=== PATIENT | female | born 1985 | race Caucasian/White ===

== ENCOUNTER → 2017-04-10 18:44 | Outpatient (CLI) | payer OTHER, SELFPAY ==
[2017-04-10 19:28] VITALS: BMI 37.4
--- NOTE | 2017-04-10 19:36 | PC.NURSE ---
INJECTIONS GIVEN PER Darin COLES RN.
== END ==
PROVIDERS: PCP Emergency Medicine; Visit Provider Emergency Medicine
DX: M54.30 Sciatica, unspecified side (principal)
CPT/HCPCS: 96372

== ENCOUNTER → 2017-04-28 16:49 | Outpatient (CLI) | payer OTHER, SELFPAY ==
[2017-04-28 19:18] VITALS: BMI 374377.5
== END ==
PROVIDERS: PCP Emergency Medicine; Visit Provider Emergency Medicine
DX: M54.30 Sciatica, unspecified side (principal)
CPT/HCPCS: 96372

== ENCOUNTER → 2017-07-07 12:55 | Outpatient (CLI) | payer OTHER, SELFPAY ==
--- NOTE | 2017-07-07 13:05 | MR_ITS ---
MR head/brain wo con HISTORY: Headache with difficulty speaking and visual disturbance ITS.REASON: MIGRAINES, ocular migraines ORDERING PHYSICIAN: Amador De Paz MD PATIENT AGE: 31 years COMPARISON: 04/24/2011 TECHNIQUE: Standard multiplanar multiecho sequences are performed without contrast. FINDINGS: No midline shift, mass effect, intracranial hemorrhage, hydrocephalus, or acute infarction. There is normal davalos-white matter differentiation. No abnormal white matter signal intensity. Unremarkable hippocampal gyri and symmetric temporal horns. The pituitary, optic chiasm, corpus callosum have an unremarkable appearance. No cerebellar ectopia. No mastoid effusion or sinus air-fluid level. IMPRESSION: Negative MRI of the brain without contrast
== END ==
PROVIDERS: PCP Internal Medicine Adolescent Medicine; Visit Provider Internal Medicine Adolescent Medicine
DX: G43.909 Migraine, unspecified, not intractable, without status migrainosus (principal)
CPT/HCPCS: 70551

== ENCOUNTER → 2017-08-07 20:06 | Outpatient (CLI) | payer OTHER, SELFPAY ==
--- NOTE | 2017-08-07 20:16 | XR_ITS ---
XR chest 2V HISTORY: ITS.REASON: SHORTNESS OF BREATH ORDERING PHYSICIAN: Keesha Hicks PATIENT AGE: 31 years COMPARISON: 05/14/2012 FINDINGS: The cardiomediastinal silhouette and pulmonary vascularity are within normal limits. The lungs are clear without infiltrates, suspicious nodules, or pleural effusions. No acute bony abnormalities. IMPRESSION: Negative chest, no acute finding
== END ==
PROVIDERS: PCP Nurse Practitioner Family; Visit Provider Nurse Practitioner Family
DX: R06.02 Shortness of breath (principal)
CPT/HCPCS: 71046

== ENCOUNTER → 2017-08-13 11:05 | Outpatient (CLI) | payer OTHER, SELFPAY | PROVIDERS: PCP Nurse Practitioner Family; Visit Provider Nurse Practitioner Family | DX: R06.02 Shortness of breath (principal) | CPT/HCPCS: 93306 ==

== ENCOUNTER → 2018-01-16 15:00 | Outpatient (CLI) | payer OTHER, SELFPAY | PROVIDERS: PCP Internal Medicine Adolescent Medicine; Visit Provider Internal Medicine Adolescent Medicine | DX: J02.9 Acute pharyngitis, unspecified (principal) | CPT/HCPCS: 87070; 87077; 87186 ==

== ENCOUNTER → 2018-03-05 08:17 | Outpatient (POV) | payer OTHER, SELFPAY | PROVIDERS: Visit Provider Dentist | DX: Z00.00 Encounter for general adult medical examination without abnormal findings (principal) ==

== ENCOUNTER 2018-04-21 15:31 | Outpatient (CLI) | payer OTHER, SELFPAY ==
[2018-04-21 15:53] VITALS: BMI 39.9
== END 2018-04-21 16:05 | disposition home or self-care (01) ==
LOC: INF 15:33
PROVIDERS: PCP Internal Medicine Adolescent Medicine; Visit Provider Emergency Medicine
DX: R09.81 Nasal congestion (principal)
CPT/HCPCS: 96372

== ENCOUNTER 2018-05-05 14:01 | Outpatient (CLI) | payer OTHER, SELFPAY ==
[2018-05-05 14:06] VITALS: BMI 41.5
== END 2018-05-05 14:12 | disposition home or self-care (01) ==
LOC: INF 14:03
PROVIDERS: PCP Internal Medicine Adolescent Medicine; Visit Provider Emergency Medicine
DX: J01.90 Acute sinusitis, unspecified (principal)
CPT/HCPCS: 96372

== ENCOUNTER → 2018-11-19 14:36 | Outpatient (CLI) | payer OTHER, SELFPAY ==
--- NOTE | 2018-11-19 14:41 | CT_ITS ---
PROCEDURE: CT ABDOMEN PELVIS WO CON CLINICAL HISTORY: UMBILICAL FISTULA, PERIUMBILICAL PAIN Mid abdominal pain COMPARISON: ABDPELW/O CT ABD PELVIS W/O CONTRAST from 07/02/2014 TECHNIQUE: Axial images obtained with sagittal and coronal reformats. All CT scans at the facility use one or more dose reduction, viz: automated exposure control, ma/kV adjustment per patient size (including targeted exams where dose is matched to indication, i.e. head), or iterative reconstruction technique. FINDINGS: Lung bases are clear. Post cholecystectomy change. No focal liver lesion. The spleen, adrenal glands, and pancreas are unremarkable. No renal or ureteral calculi are evident. No hydronephrosis. No intestinal obstruction or free air. Unremarkable appendix. There is diverticulosis of the descending and sigmoid colon but no evidence of diverticulitis. Cystic lesion is present in the left adnexa measuring 5.6 cm consistent with ovarian cyst. There is some questionable thickening of the cyst wall posteriorly. Pelvic ultrasound may provide further evaluation. No cul-de-sac fluid. No pelvic adenopathy the abdominal wall has an unremarkable appearance. There are degenerative changes at L5-S1.. Bone island is present in the proximal femur on the right IMPRESSION: 5.6 cm left ovarian cyst. Consider pelvic ultrasound for further evaluation. Colonic diverticulosis. No evidence of diverticulitis. Otherwise negative Dictated by: Cristobal Salinas MD 11/20/2018 08:12 Signed by: <Electronically signed by Cristobal Salinas MD in [place]> 11/20/2018 08:12
[2018-11-19 17:09] LABS: Alanine Aminotransferase 20 U/L (12-78); Albumin Level 3.5 gm/dL (3.4-5.0); Albumin/Globulin Ratio 0.8 (1.1-1.8); Alkaline Phosphatase 78 U/L (46-116); Amylase 30 U/L (25-115); Anion Gap 10.4 mEq/L (5-15); Aspartate Amino Transferase 14 U/L (15-37); Bilirubin,Total 0.5 mg/dL (0.2-1.0); Blood Urea Nitrogen 9 mg/dL (7-18); Calcium 8.9 mg/dL (8.5-10.1); Carbon Dioxide 27 mmol/L (21.0-32.0); Chloride 103 mmol/L (98-107); Creatinine,Serum 0.74 mg/dL (0.55-1.02); Estimated Glomerular Filt Rate 89 ml/min (>60); GFR (African American) 108 ML/MIN (>60); Globulin 4.3 gm/dl (1.3-3.2); Glucose 101 mg/dL (74-106); Lipase 117 u/L (73-393); Potassium 3.4 mmoL/L (3.5-5.1); Sodium 137 mmol/L (136-145); Total Protein,Serum 7.8 gm/dL (6.4-8.2)
[2018-11-19 17:35] LABS: Basophils % 0.5 % (0.1-2.0); Eosinophils # 0.1 K/mm3 (0.0-0.4); Eosinophils % 0.8 % (0.1-12.0); Hemoglobin 13.6 g/dL (12.2-16.2); Lymphocytes # 2.6 K/mm3 (0.7-4.5); Lymphocytes % 31.7 % (10-50); Mean Corpuscular HGB Conc 33.1 g/dL (31.8-35.4); Mean Corpuscular Hemoglobin 28.6 pg (27.0-31.2); Mean Corpuscular Volume 86.6 fl (81-99); Mean Platelet Volume 6.6 fl (7.4-10.4); Monocytes # 0.4 K/mm3 (0.1-1.0); Monocytes % 4.3 % (1.7-9.3); Neutrophils # 5.2 K/mm3 (1.8-7.8); Neutrophils % 62.7 % (37.0-80.0); Platelet Count 363 K/mm3 (142-424); Red Blood Count 4.74 M/mm3 (4.20-5.40); Red Cell Distribution Width 13.5 % (11.5-17.5); White Blood Count 8.3 K/mm3 (4.8-10.8)
== END ==
PROVIDERS: PCP Internal Medicine Adolescent Medicine; Visit Provider Internal Medicine Adolescent Medicine
DX: Q89.8 Other specified congenital malformations (principal); R10.33 Periumbilical pain
CPT/HCPCS: 36415; 74176; 80053; 82150; 83690; 85025

== ENCOUNTER → 2019-04-06 07:36 | Outpatient (CLI) | payer OTHER, SELFPAY ==
[2019-04-06 07:50] VITALS: BMI 48.6
== END ==
PROVIDERS: PCP Internal Medicine Adolescent Medicine; Visit Provider Emergency Medicine
DX: J03.90 Acute tonsillitis, unspecified (principal); J40 Bronchitis, not specified as acute or chronic
CPT/HCPCS: 96372

== ENCOUNTER → 2019-11-08 08:30 | Outpatient (CLI) | payer OTHER, SELFPAY ==
[2019-11-08 10:04] LABS: Coronavirus 19 IgG Antibody Negative (Negative); Coronavirus 19 IgM Antibody Negative (Negative)
== END ==
PROVIDERS: PCP Internal Medicine Adolescent Medicine; Visit Provider Internal Medicine Adolescent Medicine
DX: Z03.818 Encounter for observation for suspected exposure to other biological agents ruled out (principal)
CPT/HCPCS: 36415; 86328; U0003

== ENCOUNTER → 2019-12-14 10:53 | Outpatient (CLI) | payer OTHER, SELFPAY ==
[2019-12-14 12:27] LABS: 25-OH Vitamin D, Total 51.1 ng/mL (30-100)
[2019-12-14 13:03] LABS: Vitamin B12 290 pg/mL (239-931)
== END ==
PROVIDERS: Visit Provider Nurse Practitioner Family
DX: E53.8 Deficiency of other specified B group vitamins (principal); R20.2 Paresthesia of skin
CPT/HCPCS: 36415; 82306; 82607

== ENCOUNTER → 2020-03-10 10:46 | Outpatient (CLI) | payer OTHER, SELFPAY ==
[2020-03-10 11:18] LABS: Basophils % 0.6 % (0.1-2.0); Eosinophils # 0.1 K/mm3 (0.0-0.4); Eosinophils % 1.2 % (0.1-12.0); Hematocrit 45.4 % (37.0-47.0); Hemoglobin 15.5 g/dL (12.2-16.2); Lymphocytes # 2.2 K/mm3 (0.7-4.5); Lymphocytes % 32.7 % (10-50); Mean Corpuscular HGB Conc 34.2 g/dL (31.8-35.4); Mean Corpuscular Hemoglobin 30.9 pg (27.0-31.2); Mean Corpuscular Volume 90.3 fl (81-99); Mean Platelet Volume 7.4 fl (7.4-10.4); Monocytes # 0.3 K/mm3 (0.1-1.0); Monocytes % 4.1 % (1.7-9.3); Neutrophils # 4.1 K/mm3 (1.8-7.8); Neutrophils % 61.3 % (37.0-80.0); Platelet Count 318 K/mm3 (142-424); Red Blood Count 5.02 M/mm3 (4.20-5.40); Red Cell Distribution Width 13.2 % (11.5-17.5); White Blood Count 6.6 K/mm3 (4.8-10.8)
[2020-03-10 11:43] LABS: Alanine Aminotransferase 15 U/L (12-78); Albumin Level 4.9 g/dl (3.5-5.0); Albumin/Globulin Ratio 1.4 (1.1-1.8); Alkaline Phosphatase 93 U/L (38-126); Anion Gap 12.2 mEq/L (5-15); Aspartate Amino Transferase 22 U/L (14-36); Bilirubin,Total 0.7 mg/dl (0.2-1.3); Blood Urea Nitrogen 14 mg/dl (7-17); Carbon Dioxide 25 mmol/L (22.0-30.0); Chloride 105 mmol/L (98-107); Estimated Glomerular Filt Rate 113 ml/min (>60); GFR (African American) 137 ML/MIN (>60); Globulin 3.5 g/dL (1.3-3.2); Glucose 100 mg/dl (74-100); Potassium 4.2 mmoL/L (3.5-5.1); Sodium 138 mmol/L (136-145); Total Protein,Serum 8.4 g/dl (6.3-8.2)
[2020-03-10 11:53] LABS: Erythrocyte Sedimentation Rate 10 mm/hr (0-20)
[2020-03-10 12:33] LABS: Vitamin B12 834 pg/mL (239-931)
[2020-03-14 20:10] LABS: Antinuclear Antibodies, IFA Negative (.)
== END ==
PROVIDERS: Visit Provider Nurse Practitioner Family
DX: G43.109 Migraine with aura, not intractable, without status migrainosus (principal); E53.8 Deficiency of other specified B group vitamins; H20.9 Unspecified iridocyclitis
CPT/HCPCS: 36415; 80053; 82607; 85025; 85651; 86038; 86140

== ENCOUNTER → 2020-03-14 09:24 | Outpatient (CLI) | payer OTHER, SELFPAY ==
--- NOTE | 2020-03-14 09:35 | CA_ITS ---
APPROVED REPORT EXAM: Comprehensive 2D, Doppler, and color-flow Echocardiogram Brand Protection Manager: Florence George, RT(R) Ht: 5 ft 5 in Wt: 236lbs BSA: 2.12 BP: 112/54 mmHg Indications: occular migraine, HTN, family history of HD, ordered as a bubble study Echo Enhancing Agent Indication: Rule out Shunt Agent(s) / Amount(s) Used: Agitated Saline 20 cc 2D Dimensions LVOT 2.05 cm (M/F) 1.5-2.5 M-Mode Dimensions RVDd 2.88 cm (0.9-2.6) LA Diam 2.55 cm (1.9-4.0) LVDd 4.25 cm (3.5-5.7) Ao Diam 3.70 cm (2.0-3.7) LVDs 2.96 cm (3.5-5.7) IVSd 1.06 cm (0.6-1.1) PWd 1.02 cm (0.6-1.1) EF (Teich) 58.00% FS 30.40% EDV (Teich) 80.80 mL ESV (Teich) 33.90 mL LV Diastology E Decel Time 247.00 (160-240 msec) E/A Ratio 1.1 MED E' 6.40 (< 7 cm/sec) E'/MED E' Ratio 12.34 (>14) LAT E' 14.20 (<10 cm/sec) E/LAT E' Ratio 5.56 (>14) Mitral Valve MV E Max Efrain. 79.00 (40-130 cm/s) MV A Velocity 69.00 (40-130 cm/s) E/A Ratio 1.15 MV Decel. Time 247.00 (160-240 ms) MV PHT 72.00 ms Tricuspid Valve TR P. Velocity 165.00 cm/s RAP Estimate 15.00 mmHg RVSP 25.90 mmHg Left Ventricle Left atrium is normal size, left ventricle is normal size, there is no concentric left ventricular hypertrophy, visually estimated ejection fraction 55% with no regional wall motion abnormality. Diastolic parameters are inconclusive. Right Ventricle Right atrium and right ventricular normal size and contractility. Atria Intra-atrial septum is intact, there is no flow across the interatrial septum, agitated saline contrast study fails 25 intracardiac shunt. Aortic Valve Aortic valve is minimally thickened and fibrosed, there is no aortic stenosis or aortic insufficiency. Mitral Valve Mitral valve is grossly normal, there is trace mitral regurgitation. Tricuspid Valve Tricuspid valve is grossly normal, there is trace tricuspid regurgitation. Pulmonic Valve Pulmonic valve is poorly visualized. Great Vessels Aortic root is normal size. Pericardium No significant pericardial effusion noted. Conclusion 1. Normal left ventricular size, preserved left ventricular systolic function, visually estimated ejection fraction 55% with no regional wall motion abnormality, diastolic parameters are inconclusive. 2. Trace mitral and tricuspid regurgitation. 3. Agitated saline contrast study fails to identify intracardiac shunt. Electronically signed by : Antonino Thomas, 03/15/2020 05:57:47
== END ==
PROVIDERS: PCP Internal Medicine Adolescent Medicine; Visit Provider Nurse Practitioner Family
DX: G43.109 Migraine with aura, not intractable, without status migrainosus (principal)
CPT/HCPCS: 93306

== ENCOUNTER → 2020-12-06 13:37 | Outpatient (CLI) | payer OTHER, SELFPAY | PROVIDERS: PCP Internal Medicine Adolescent Medicine; Visit Provider Nurse Practitioner | DX: Z20.822 Contact with and (suspected) exposure to COVID-19 (principal) | CPT/HCPCS: C9803; U0003; U0005 ==

== ENCOUNTER 2021-03-13 19:59 | Outpatient (CLI) | payer OTHER, SELFPAY | END 2021-03-13 20:18 | disposition home or self-care (01) | LOC: INF 20:01 | PROVIDERS: PCP Internal Medicine Adolescent Medicine; Visit Provider Emergency Medicine | DX: J32.9 Chronic sinusitis, unspecified (principal) | CPT/HCPCS: 96372 ==

== ENCOUNTER 2021-08-30 18:40 | Emergency (ER) | payer OTHER, SELFPAY ==
[2021-08-30 18:49] VITALS: PULSE 95; RESP 17; TEMP 37; O2SAT 98; BMI 41.2
--- NOTE | 2021-08-30 18:55 | HMH.EDUTC ---
[facility] [place] Clinical Impression: Acute bronchitis Qualifiers: Bronchitis organism: unspecified organism Qualified Code(s): J20.9 - Acute bronchitis, unspecified Disposition: Home, Self-Care Condition on Discharge: Good Instructions: DI for Acute Bronchitis Additional Instructions: Drink plenty of fluids. Take tylenol or ibuprofen for pain or fever. Take the medications as directed. Follow up with your regular doctor. GO TO THE ER FOR ANY WORSENING SYMPTOMS Prescriptions: methylPREDNISolone [Medrol] 4 mg PO DIRECTED 6 Days #21 packet Transmission Status: Pending to [facility] guaiFENesin [Mucinex 600mg tablet] 1 - 2 tab PO BIDP PRN #30 tab PRN Reason: Congestion Transmission Status: Pending to [facility] Azithromycin [Z-Daniel 250mg Tab*] 250 mg PO UD DOSE PK #6 tab Transmission Status: Pending to [facility] Referrals: Amador De Paz MD [Primary Care Provider] - Time of Disposition: 18:58 Medical Decision Making - Medical Records Medical records reviewed: No: I reviewed the patient's medical records. - Ron Inquiry Pt receiving controlled substance: No Vital Signs: 08/30/21 18:49 Temperature 98.6 F Temperature Source Oral Pulse Rate [Left Radial] 95 H Respiratory Rate 17 02 Sat by Pulse Oximetry 98 Orders (Tests/Meds): ED MEDICATIONS Discontinued Medications Generic Name Dose Route Start Last Admin Trade Name Freq PRN Reason Stop Dose Admin Ceftriaxone Sodium 1 gm 08/30/21 18:47 Ceftriaxone 1gm Vial IM 08/30/21 18:48 ONCE ONE Dexamethasone Sodium Phosphate 8 mg 08/30/21 18:47 Dexamethasone 4mg/Ml 1ml Vial IM 08/30/21 18:48 ONCE ONE Lidocaine HCl 0 ml 08/30/21 18:47 Lidocaine 1% 5ml Pf Vial IM 08/30/21 18:48 ONCE [place] [facility] [place] - General Stated complaint: cough congestion Time Seen by Provider: 08/30/21 18:55 Description of Symptoms (Recalled from Triage Doc. by RN): patient comes in today with complaints of cough and congestion. patient states that symptoms began friday. HEENT Symptoms (Recalled from RN notes): Yes Resp Symptoms (Recalled from RN notes): Yes Skin Symptoms (Recalled from RN notes): No MS Symptoms (Recalled from RN notes): No Functional Status (Recalled from RN notes): wnl - History of Present Illness Provider Complaint: She states that she has had chest and sinus congestion and productive cough for the past 2 days. - Related Data Previous Rx's Medication Instructions Recorded Azithromycin [Z-Daniel 250mg Tab*] 250 mg PO UD DOSE PK #6 tab 08/30/21 guaiFENesin [Mucinex 600mg tablet] 1 - 2 tab PO BIDP PRN #30 tab 08/30/21 methylPREDNISolone [Medrol] 4 mg PO DIRECTED 6 Days #21 08/30/21 packet Allergies Allergy/AdvReac Type Severity Reaction Status Date / Time Iodinated Contrast Media Allergy Severe S-DIFF. Verified 08/30/21 18:51 [Iodinated Contrast Media - BREATHING IV Dye] - Worker's Comp Is this a Worker's Comp case?: No [facility] History - Hepatitis A Screen Attestation statement:: This patient has been screened for Hepatitis A risk factors. I have reviewed the patient's past medical history: Yes ROS Obtained: Yes All systems reviewed & no additional complaints - Constitutional Constitutional: Reports as per HPI, Reports chills, Denies fever(s) - Eyes Eyes: Denies eye discharge - ENT Ears, Nose, Mouth, and Throat: Reports as per HPI - Cardiovascular Cardiovascular: Denies chest pain - Respiratory Respiratory: Reports chest congestion, Reports cough, Denies dyspnea, Denies stridor, Denies wheezing Physical Exam - General General appearance: alert, in no apparent distress - Head Head exam: atraumatic, normocephalic, normal inspection - Eye Eye exam: Present: normal appearance, PERRL, EOMI - ENT ENT exam: Present: normal exam, normal oropharynx, mucous membranes moist, TM's normal bilaterally, normal external ear exam
[2021-08-30 19:08] VITALS: BP 148/71; PULSE 95; RESP 17; TEMP 37
== END 2021-08-30 19:09 | disposition home or self-care (01) ==
PROVIDERS: Emergency Provider Nurse Practitioner Family; PCP Internal Medicine Adolescent Medicine
DX: J20.9 Acute bronchitis, unspecified (principal); Z79.52 Long term (current) use of systemic steroids; Z91.041 Radiographic dye allergy status
CPT/HCPCS: 96372; 99213; G0463; J0696

== ENCOUNTER 2021-12-12 09:39 | Emergency (ER) | payer OTHER, SELFPAY ==
[2021-12-12 09:55] VITALS: BP 140/88; PULSE 85; RESP 18; TEMP 36.8; O2SAT 98; BMI 41.2
--- NOTE | 2021-12-12 10:15 | EXP.UTC ---
Discharge Plan Disposition Patient Disposition: Home, Self-Care Condition: Good Prescriptions Prescriptions: New methylprednisolone [Medrol (Daniel)] 4 mg tablets,dose pack See Rx Instructions .Route .COMPLEX 6 Days Qty: 21 0RF Rx Instructions: taper pack; cefdinir 300 mg capsule 300 mg PO BID Qty: 20 0RF guaifenesin [Mucinex] 600 mg tablet extended release 12hr 600 mg PO BID PRN (Reason: cough) Qty: 20 0RF promethazine-DM 6.25-15 mg/5 mL syrup 5 ml PO Q6H PRN (Reason: cough) Qty: 118 0RF No Action verapamil 120 mg tablet 120 mg PO BID Label Comments: TAKE ONE TABLET BY MOUTH TWICE DAILY Referrals Follow up/Referrals: Amador De Paz MD [Primary Care Provider] - See instructions Activity Restrictions/Add. Instructions Additional Instructions/Restrictions: *Monitor Temp, Over the counter Motrin or Tylenol as directed/as needed Tylenol every 4 hours and Motrin every 6 hours (as long as your family doctor has told you that you can take it) for fever or pain. and straight to ER if unable to lower temp less than 101.0 after medication given *Warm salt water gargles may help to soothe the throat *Throat Lozenges? *Warm fluids like tea with honey may help to soothe the throat? *Sleep elevated *Humidifier/Vaporizer Start oral antibiotics and Medrol tomorrow Follow up IMMEDIATELY for new or worsening symptoms or no Noticeable improvement over the next 48-72 hours. 911 for difficulty breathing or swallowing Clinical Impressions Clinical Impression: Acute bronchitis, Otitis media Instructions Patient Instructions: Middle Ear Infection, Acute Bronchitis Discharge ED Provider: Rylee Biggs [facility] [place] HPI General Stated complaint: sore throat, cough Mode of Arrival: Ambulatory Source of Information: Patient Limitations: No Limitations Time Seen by Provider: 12/12/21 10:16 Description of Symptoms (Recalled from Triage Doc. by RN): PATIENT C/O SORE THROAT, COUGH, AND HEAD CONGESTION X 2 DAYS HEENT Symptoms (Recalled from RN notes): Yes Resp Symptoms (Recalled from RN notes): Yes Skin Symptoms (Recalled from RN notes): No MS Symptoms (Recalled from RN notes): No Functional Status (Recalled from RN notes): WNL History of Present Illness Provider Complaint: Patient states that she has been having sore scratchy throat, pain in her left ear and head congestion States that she can barely talk and feels like it is trying to move into bronchitis States that today she was feeling worse so she came in to get checked Related Data Home Medications Medication Instructions Recorded Confirmed verapamil 120 mg tablet 120 mg PO BID Hypertension 12/12/21 12/12/21 Previous Rx's Medication Instructions Recorded cefdinir 300 mg capsule 300 mg PO BID #20 caps 12/12/21 guaifenesin 600 mg tablet, 600 mg PO BID PRN cough #20 tabs 12/12/21 extended release 12 hr (Mucinex) methylprednisolone 4 mg tablets in See Rx Instructions .Route 12/12/21 a dose pack (Medrol (Daniel)) .COMPLEX 6 days #21 tabs promethazine-DM 6.25 mg-15 mg/5 mL 5 ml PO Q6H PRN cough #118 mL 12/12/21 oral syrup Allergies Allergy/AdvReac Type Severity Reaction Status Date / Time Iodinated Contrast Media Allergy Severe S-DIFF. Verified 08/30/21 18:51 [Iodinated Contrast Media - BREATHING IV Dye] Worker's Comp Is this a Worker's Comp case?: No PFSH PFSH Medical History (Updated 12/12/21 @ 10:23 by Rylee Biggs APRN) Hypertension Surgical History (Updated 12/12/21 @ 10:06 by Dary Damon RN) History of cholecystectomy History of discectomy Social History (Updated 12/12/21 @ 10:07 by Dary Damon RN) Smoking Status: Never smoker alcohol intake: never current occupational status: employed Travel in the last 8 weeks: None ROS Obtained: Yes All systems reviewed & no additional complaints except as documented and Yes Systems reviewed as appropriate
[2021-12-12 10:27] VITALS: BP 140/88; PULSE 85; RESP 18; TEMP 36.8; O2SAT 98
== END 2021-12-12 10:33 | disposition home or self-care (01) ==
PROVIDERS: Emergency Provider Nurse Practitioner; PCP Internal Medicine Adolescent Medicine
DX: J20.9 Acute bronchitis, unspecified (principal); H66.92 Otitis media, unspecified, left ear
CPT/HCPCS: 96372; 99212; G0463; J0696

== ENCOUNTER → 2022-04-17 07:24 | Outpatient (CLI) | payer OTHER, SELFPAY | END | disposition home or self-care (01) | PROVIDERS: PCP Internal Medicine Adolescent Medicine; Visit Provider Emergency Medicine | DX: R50.9 Fever, unspecified (principal); R05.9 Cough, unspecified | CPT/HCPCS: 96372; J0696 ==

== ENCOUNTER → 2022-08-06 08:47 | Outpatient (CLI) | payer OTHER, SELFPAY ==
[2022-08-06 10:26] LABS: Alanine Aminotransferase 29 U/L (12-78); Albumin Level 4.5 g/dl (3.5-5.0); Albumin/Globulin Ratio 1.5 (1.1-1.8); Alkaline Phosphatase 119 U/L (38-126); Anion Gap 18.8 mEq/L (5-15); Aspartate Amino Transferase 34 U/L (14-36); Bilirubin,Total 0.5 mg/dl (0.2-1.3); Blood Urea Nitrogen 9 mg/dl (7-17); Calcium 9.1 mg/dl (8.4-10.2); Carbon Dioxide 25 mmol/L (22.0-30.0); Chloride 98 mmol/L (98-107); Chol/HDL Ratio 4.1 (1-3.5); Cholesterol 221 mg/dl (140-200); Estimated Glomerular Filt Rate 112 ml/min (>60); GFR (African American) 135 ML/MIN (>60); Globulin 3.1 g/dL (1.3-3.2); Glucose 103 mg/dl (74-100); HDL Cholesterol 54 mg/dl (40-60); Potassium 3.8 mmoL/L (3.5-5.1); Sodium 138 mmol/L (136-145); Total Protein,Serum 7.6 g/dl (6.3-8.2); Triglycerides 147 mg/dl (30-150); VLDL Cholesterol 29 mg/dL (0-40)
[2022-08-06 10:36] LABS: Hemoglobin A1C 5.2 % (4.0-6.0)
[2022-08-06 10:37] LABS: Direct LDL Cholesterol 136.59 mg/dL (100-129)
[2022-08-06 10:45] LABS: 25-OH Vitamin D, Total 33.4 ng/mL (30-100)
[2022-08-06 10:56] LABS: Thyroid Stimulating Hormone 1.93 uIU/mL (0.465-4.68)
[2022-08-06 11:15] LABS: Vitamin B12 433 pg/mL (239-931)
== END ==
PROVIDERS: PCP Internal Medicine Adolescent Medicine; Visit Provider Nurse Practitioner Family
DX: Z00.00 Encounter for general adult medical examination without abnormal findings (principal); I10 Essential (primary) hypertension; E53.8 Deficiency of other specified B group vitamins; E55.9 Vitamin D deficiency, unspecified; E66.01 Morbid (severe) obesity due to excess calories; Z68.43 Body mass index [BMI] 50.0-59.9, adult
CPT/HCPCS: 36415; 80053; 80061; 82306; 82607; 83036; 84443

== ENCOUNTER 2022-10-15 17:50 | Emergency (ER) | payer OTHER, SELFPAY ==
[2022-10-15 17:50] VITALS: BP 158/107; PULSE 92; RESP 16; TEMP 37.3; O2SAT 97; BMI 41.5
--- NOTE | 2022-10-15 18:04 | EXP.UTC ---
Discharge Plan Disposition Patient Disposition: Home, Self-Care Condition: Good Prescriptions Prescriptions: New promethazine-DM 6.25-15 mg/5 mL Syrup 5 ml PO Q6H PRN (Reason: Cough) Qty: 240 0RF benzonatate [benzonatate] 100 mg capsule 100 mg PO TIDP PRN (Reason: Cough) Qty: 30 0RF ondansetron 4 mg Tablet,Disintegrating 4 mg PO Q8H PRN (Reason: Nausea) Qty: 12 0RF No Action verapamil 120 mg tablet 120 mg PO BID Patient Comments: TAKE ONE TABLET BY MOUTH TWICE DAILY methylprednisolone [Medrol (Daniel)] 4 mg tablets,dose pack See Rx Instructions .Route .COMPLEX 6 Days Qty: 21 0RF Rx Instructions: taper pack; cefdinir 300 mg capsule 300 mg PO BID Qty: 20 0RF guaifenesin [Mucinex] 600 mg tablet extended release 12hr 600 mg PO BID PRN (Reason: cough) Qty: 20 0RF promethazine-DM 6.25-15 mg/5 mL syrup 5 ml PO Q6H PRN (Reason: cough) Qty: 118 0RF Referrals Follow up/Referrals: Amador De Paz MD [Primary Care Provider] - See instructions Activity Restrictions/Add. Instructions Additional Instructions/Restrictions: Drink plenty of fluids. Take tylenol or ibuprofen for pain or fever. Take the medications as directed. Follow up with your regular doctor. GO TO THE ER FOR ANY WORSENING SYMPTOMS Clinical Impressions Clinical Impression: COVID-19 Stand Alone Forms Stand Alone Forms: Work/School Release Instructions Patient Instructions: Coronavirus Disease 2019, Preventing the Spread of Coronavirus Discharge Instructions Discharge ED Provider: Mathieu Dumont [facility] General Stated complaint: Weakness; sore throat; runny nose Mode of Arrival: Ambulatory Source of Information: Patient Limitations: No Limitations Time Seen by Provider: 10/15/22 18:04 Description of Symptoms (Recalled from Triage Doc. by RN): Patient reports cough, head congestion, runny nose and weakness since yesterday. HEENT Symptoms (Recalled from RN notes): Yes Resp Symptoms (Recalled from RN notes): No Skin Symptoms (Recalled from RN notes): No MS Symptoms (Recalled from RN notes): No Functional Status (Recalled from RN notes): wnl History of Present Illness Provider Complaint: She states that she has felt bad since this morning. But, around 3 hours ago she began to have chilling, body aches, nausea, and malaise. She c/o a scratchy sore throat also. Related Data Home Medications Medication Instructions Recorded Confirmed verapamil 120 mg tablet 120 mg PO BID Hypertension 12/12/21 12/12/21 Previous Rx's Medication Instructions Recorded cefdinir 300 mg capsule 300 mg PO BID #20 caps 12/12/21 guaifenesin 600 mg tablet, 600 mg PO BID PRN cough #20 tabs 12/12/21 extended release 12 hr (Mucinex) methylprednisolone 4 mg tablets in See Rx Instructions .Route 12/12/21 a dose pack (Medrol (Daniel)) .COMPLEX 6 days #21 tabs promethazine-DM 6.25 mg-15 mg/5 mL 5 ml PO Q6H PRN cough #118 mL 12/12/21 oral syrup benzonatate 100 mg capsule 100 mg PO TIDP PRN Cough #30 caps 10/15/22 ondansetron 4 mg disintegrating 4 mg PO Q8H PRN Nausea #12 tabs 10/15/22 tablet promethazine-DM 6.25 mg-15 mg/5 mL 5 ml PO Q6H PRN Cough #240 mL 10/15/22 oral syrup Allergies Allergy/AdvReac Type Severity Reaction Status Date / Time Iodinated Contrast Media Allergy Severe S-DIFF. Verified 08/30/21 18:51 [Iodinated Contrast Media - BREATHING IV Dye] Worker's Comp Is this a Worker's Comp case?: No [facility] Disclaimer: The information contained in this section may have been updated after the patient was seen, as this information can be updated by other users. Medical History (Updated 10/15/22 @ 18:53 by Mathieu Dumont APRN) Hypertension Surgical History (Updated 12/12/21 @ 10:06 by Dary Damon RN) History of cholecystectomy History of discectomy Social History (Updated 12/12/21 @ 17:27 by Rylee Biggs APRN) Smoking Status: Never smoker alcohol intake: ne
[2022-10-15 18:07] LABS: UTC Strep Screen (Rapid) Negative (Negative)
[2022-10-15 18:15] LABS: Influenza A, PCR Not Detected (NotDetected); Influenza B, PCR Not Detected (NotDetected)
[2022-10-15 18:50] LABS: Coronavirus 19, PCR Detected (NotDetected)
[2022-10-15 19:03] VITALS: BP 158/107; PULSE 92; RESP 16; TEMP 37.3; O2SAT 97
== END 2022-10-15 19:03 | disposition home or self-care (01) ==
PROVIDERS: Emergency Provider Nurse Practitioner Family; PCP Internal Medicine Adolescent Medicine
DX: U07.1 COVID-19 (principal); I10 Essential (primary) hypertension
CPT/HCPCS: 87636; 87880; 99212; 99214; G0463

== ENCOUNTER 2023-04-01 09:32 | Outpatient (CLI) | payer OTHER, SELFPAY ==
--- NOTE | 2023-04-01 | CT_ITS ---
FINAL REPORT TECHNIQUE: Axial images through the abdomen and pelvis were performed without contrast. This study was performed with techniques to keep radiation doses as low as reasonably achievable, (ALARA). Individualized dose reduction techniques using automated exposure control or adjustment of mA and/or kV according to the patient's size were employed. CLINICAL HISTORY: left lower pelvic pain and burning sensation. COMPARISON: October 2018 FINDINGS: ABDOMEN: The lung bases are clear. The heart size is normal. Limited images of the liver are unremarkable. There has been cholecystectomy. The spleen is normal. No adrenal mass is identified. The aorta is normal in caliber. There is no significant free fluid or adenopathy. There is no nephrolithiasis. There is no hydronephrosis. PELVIS: The appendix is is normal. There is widespread diverticulosis. There is inflammatory change adjacent to the distal descending colon consistent with acute diverticulitis. There is no bowel obstruction, abscess or free air. The urinary bladder is unremarkable. There is a cystic mass in the left adnexa that measures 8.8 cm and previously measured 6.3 cm. IMPRESSION: Acute uncomplicated distal descending diverticulitis. Interval increase in a cystic mass in the left adnexa that could represent a cyst versus cystic neoplasm. Reviewed, Interpreted and Dictated by Leonel Sanz III, MD Transcribed by Coleman Lantigua Authenticated and [facility]
--- NOTE | 2023-04-01 13:32 | US_ITS ---
PROCEDURE: US TRANSVAGINAL CLINICAL INDICATION: ADNEXAL MASS COMPARISON: No exams were available for comparison FINDINGS: Transvaginal sonographic images of the pelvis were obtained. UTERUS: 8.0cm x 4.4cmx 3.4cm anteverted with a combined endometrial thickness of 6.5mm. Small echogenic area in the posterior basalis of the endometrium. Possible adenomyosis. LEFT OVARY: 8.6 cmx8.8 cmx8.7cm with a volume of 340.8ml. There is a large simple cyst measuring 8.8 cm x 7.8 cm x 7.7 cm. RIGHT OVARY: 3.3cmx 2.6 cmx2.4cm with a volume of 10.5ml. Both ovaries are seen. Doppler flow to both ovaries are seen. There is no fluid in the cul-de-sac. IMPRESSION: 1. Anteverted uterus normal in shape and size. The endometrium is normal. 2. The left ovary is markedly enlarged with a simple cyst measuring 8.8 cm. 3. Right ovary appears normal. 4. No fluid in the cul-de-sac. Dictated by: Shady Robins MD 04/01/2023 17:46 Shady Robins MD in [place] 04/01/2023 17:46
== END 2023-04-01 23:59 ==
PROVIDERS: PCP Nurse Practitioner Family; Visit Provider Nurse Practitioner Family
DX: R10.9 Unspecified abdominal pain (principal); R31.29 Other microscopic hematuria
CPT/HCPCS: 74176; 76830

== ENCOUNTER 2023-04-03 17:42 | Outpatient (CLI) | payer OTHER, SELFPAY ==
[2023-04-03 18:04] LABS: Basophils # 0.1 K/mm3 (0-0.2); Basophils % 0.9 % (0.1-2.0); Eosinophils # 0.3 K/mm3 (0.0-0.4); Eosinophils % 2.6 % (0.1-12.0); Hemoglobin 14.4 g/dL (12.2-16.2); Lymphocytes # 3.9 K/mm3 (0.7-4.5); Lymphocytes % 36.5 % (10-50); Mean Corpuscular HGB Conc 34.3 g/dL (31.8-35.4); Mean Corpuscular Hemoglobin 29.9 pg (27.0-31.2); Mean Corpuscular Volume 87.1 fl (81-99); Mean Platelet Volume 7.4 fl (7.4-10.4); Monocytes # 0.4 K/mm3 (0.1-1.0); Monocytes % 3.6 % (1.7-9.3); Neutrophils % 56.5 % (37.0-80.0); Platelet Count 398 K/mm3 (142-424); Red Blood Count 4.82 M/mm3 (4.20-5.40); Red Cell Distribution Width 13.3 % (11.5-17.5); White Blood Count 10.6 K/mm3 (4.8-10.8)
[2023-04-03 18:11] LABS: Alanine Aminotransferase 18 U/L (12-78); Alkaline Phosphatase 91 U/L (38-126); Aspartate Amino Transferase 26 U/L (14-36); Bilirubin,Total 0.3 mg/dl (0.2-1.3); Blood Urea Nitrogen 12 mg/dl (7-17); Carbon Dioxide 26 mmol/L (22.0-30.0); Chloride 105 mmol/L (98-107); Estimated Glomerular Filt Rate 80 ml/min (>60); GFR (African American) 97 ML/MIN (>60)
[2023-04-03 18:13] LABS: Albumin Level 4.3 g/dl (3.5-5.0); Albumin/Globulin Ratio 1.3 (1.1-1.8); Anion Gap 9.8 mEq/L (5-15); Calcium 8.9 mg/dl (8.4-10.2); Globulin 3.4 g/dL (1.3-3.2); Glucose 94 mg/dl (74-100); Potassium 3.8 mmoL/L (3.5-5.1); Sodium 137 mmol/L (136-145); Total Protein,Serum 7.7 g/dl (6.3-8.2)
[2023-04-03 18:32] LABS: HCG,Quantitative < 2 mIU/ml (0-5.42)
== END 2023-04-03 23:59 ==
LOC: LAB 17:43
PROVIDERS: PCP Nurse Practitioner Family; Visit Provider Nurse Practitioner Obstetrics & Gynecology
DX: N83.202 Unspecified ovarian cyst, left side (principal)
CPT/HCPCS: 80053; 84702; 85025

== ENCOUNTER 2023-04-17 08:18 | Day surgery (SDC) | payer OTHER, SELFPAY ==
[2023-04-17] VITALS (10 sets, daily range): BP systolic 112–139; BP diastolic 63–97; PULSE 59–84; RESP 16–18; TEMP 36.2–43; O2SAT 93–98
[2023-04-17] MEDS: LACTATED RINGERS 1000ML 1,000 ML 25 ML IV (08:27)
[2023-04-17 09:25] LABS: Urine Pregnancy, HCG Qual. Negative (Negative)
--- NOTE | 2023-04-17 09:40 | P.PNANES_ITS ---
[facility] Disclaimer: The information contained in this section may have been updated after the patient was seen, as this information can be updated by other users. Medical History Hypertension Surgical History History of cholecystectomy History of discectomy Family History Other Cancer Diabetes Hypertension Social History Smoking Status: Never smoker alcohol intake: never substance use type: denies use current occupational status: employed Travel in the last 8 weeks: None [facility] Anesthesia Checklist Patient Identification Patient Identification: Arm Band Structural Data Admitted From: Home Planned Operative Procedure/s: Laparoscopic Left Ovarian Cystectomy Consent for Planned Operative Procedure(s) Verified: Yes Verified Documents: Surgical Consent and History and Physical NPO Status Verified Time NPO: 00:00 Additional verifications Anesthesia Reactions: No Hx Blood Transfusions: No Blood Transfusion Reaction: No Airway Assessment Mallampati Score:: Class II C-Spine Mobility Assessed: Yes TMJ Mobility Assessed: Yes Dentition: Good Dentition Neurological Assessment Level of Consciousness: Awake, Alert and Appropriate Anesthesia Plan Anesthesia Risk discussed: Yes Anesthesia Plan: Verified ASA Class: III Anesthesia Type: General
[2023-04-17] MEDS: SODIUM CHLORIDE IRRIG SOLUTION 3,000 ML 999 ML IR (09:44)
[2023-04-17] MEDS: ROPIVACAINE 0.5% 30ML VIAL 300 MG (09:44)
[2023-04-17] MEDS: CEFAZOLIN SODIUM 2 GM in 0.9 % SODIUM CHLORIDE 100 ML IV (09:55)
--- NOTE | 2023-04-17 10:55 | EXP.OP.NOTE ---
Date of procedure: 04/17/23 Pre-op Diagnosis:: Left lower quadrant pain, left ovarian cyst Post-op Diagnosis:: Left lower quadrant pain, left ovarian cyst, extensive pelvic peritoneal adhesions. Procedure performed:: Diagnostic laparoscopy and unable to enter the abdominal Surgeon:: Shady Robins MD BRANCH ACCOUNT MANAGER:: Christian Conn Anesthesia: GETA Estimated blood loss (mL): 25 Clinical Note:: She is a 37-year-old lady who complains of left lower quadrant pain. She had a bout of diverticulitis that was treated with antibiotics over the last couple of weeks. Ultrasound showed that she had a 9 cm left ovarian cyst. After being treated with antibiotics she was offered laparoscopic left ovarian cystectomy. Operative findings:: I entered the abdominal cavity at the umbilicus and she was found to have extensive pelvic peritoneal adhesions. It seems that the omentum was adherent to the entire anterior abdominal wall. I could not get into the abdominal cavity at all. I further tried with a midclavicular trocar just below the rib cage and once again I was not able to get into the abdominal cavity. As result of that I elected to abandon the procedure. Operative note:: She was taken the operating room where general anesthesia was found to be adequate. She was prepped regular sterile fashion in the semilithotomy position. Weighted speculum is placed in the vagina and the anterior lip of the cervix was grasped with a tenaculum. I then dilated the cervix to approximately 3 mm. I then inserted a Emilee uterine manipulator into the uterine cavity and insufflated the balloon. I then changed gloves and injected 10 cc of 0.25% ropivacaine around the umbilicus. I made a small incision within the umbilicus and then inserted a Veress needle into the abdominal cavity. The abdominal cavity was then insufflated with carbon oxide gas to a pressure of 20 mmHg. I then inserted an 11 mm trocar under direct vision. I was not able to get into the abdominal cavity. I further inspected with just the scope and once again could not find a space within the abdominal cavity. I then injected through and through at the midclavicular line just below the rib cage and inserted a 5 mm trocar here under direct vision. Once again I was not able to get into the abdominal cavity and there were extensive adhesions along the anterior abdominal wall. They were filmy adhesions. As result of that I elected to abandon the procedure. The 5 mm trocar was then removed followed by the 11 mm trocar after allowing all the gas to be expelled. The 11 mm trocar site was closed first deeply with 2-0 Vicryl suture followed by interrupted subcuticular 4-0 Monocryl suture. The 5 mm trocar site was closed with subcuticular 4-0 Monocryl suture. She Toller the procedure well and was taken to the recovery room in excellent condition. All sponge, instrument and needle counts were correct. Estimated blood loss was less than 25 cc. Condition: stable Disposition: PACU Specimens:: None Complications:: Unable to enter the abdominal cavity.
--- NOTE | 2023-04-17 10:58 | EXP.ANES.I ---
[facility] Anesthesia Record Part I Anesthesia Record I Intake, IV Amount: 1,200 Hydration: Adequate Estimated blood loss (mL): 5 Urine output (mL): 75 Blood Products used (#): none Blood Pressure: 122/73 SaO2: 94 Pulse Rate: 84 Airway Patency: Patent Respiratory Rate: 16 Temperature: 98.2 F Patient is:: Drowsy and Stable Stable to PACU at:: 10:55
--- NOTE | 2023-04-18 11:54 | P.PNANES_ITS ---
[facility] Anesthesia Record Part II Anesthesia Record Part II Discharge Time: 11:25 Destination: Surgical Day Care (OP Surgery) PACU nurse assessment reviewed?: Yes Patient Condition:: Good Anesthesia Complications:: None Swallowing reflex intact?: Yes Airway Patency: Patent Cyanosis?: No Blood Pressure: 124/70 SaO2: 98 Respiratory Rate: 16 Pulse Rate: 67 Temperature: 97.1 F Mental Status: Alert & Oriented Pain level:: 0 Nausea and/or vomitting:: None Intake, IV Amount: 0 Hydration: Adequate
[2023-04-18 11:55] VITALS: BP 124/70; PULSE 67; RESP 16; TEMP 36.2; O2SAT 98
== END 2023-04-17 12:09 | disposition home or self-care (01) ==
PROVIDERS: PCP Nurse Practitioner Family; Visit Provider Nurse Practitioner Obstetrics & Gynecology
PROC: 0TTB4ZZ Resection of Bladder, Percutaneous Endoscopic Approach (ICD-10-PCS; CPT 51999; principal; 2023-04-17 09:45)
DX: N83.202 Unspecified ovarian cyst, left side (principal); N73.6 Female pelvic peritoneal adhesions (postinfective); R10.32 Left lower quadrant pain; Z53.09 Procedure and treatment not carried out because of other contraindication
CPT/HCPCS: 58662; 81025; 96374; J2405

== ENCOUNTER 2024-01-15 08:10 | Emergency (ER) | payer OTHER, SELFPAY ==
[2024-01-15 08:10] VITALS: BP 147/84; PULSE 66; RESP 18; TEMP 36.9; O2SAT 96; BMI 39.9
--- NOTE | 2024-01-15 08:27 | ED_ITS ---
Discharge Plan Disposition Patient Disposition: Home, Self-Care Condition: Good Prescriptions Prescriptions: New benzonatate 100 mg capsule 100 mg PO TIDP PRN (Reason: Cough) Qty: 30 0RF methylprednisolone 4 mg Tablets,Dose Pack 4 mg PO DIRECTED 6 Days Qty: 21 0RF Rx Instructions: Take 1 pack as directed for 6 days amoxicillin-pot clavulanate 875-125 mg Tablet 1 tab PO Q12H Qty: 20 0RF promethazine-DM 6.25-15 mg/5 mL Syrup 5 ml PO Q6H PRN (Reason: Cough) Qty: 240 0RF No Action verapamil 180 mg tablet extended release 180 mg PO DAILY cyanocobalamin (vitamin B-12) 1,000 mcg/mL solution 1,000 mcg SQ QMONTH Patient Comments: INJECT 1 ML INTRAMUSCULARLY ONCE monthly DIRECTED Referrals Follow up/Referrals: Keesha Cabrera APRN [Primary Care Provider] - See instructions Activity Restrictions/Add. Instructions Additional Instructions/Restrictions: Drink plenty of fluids. Take tylenol or ibuprofen for pain or fever. Take the medications as directed. Follow up with your regular doctor. GO TO THE ER FOR ANY WORSENING SYMPTOMS Don't start the oral steroids (medrol dose pack) until tomorrow since you had the shot here The cough medication (promethazine dm) will make you drowsy, so don't drive or operate heavy machinery after taking it. Clinical Impressions Clinical Impression: Acute bronchitis, Sinusitis Instructions Patient Instructions: Sinusitis, DI for Sinusitis, Amoxicillin and Clavulanic Acid, Dexamethasone Injection Print Language Print Language: [place] Discharge ED Provider: Mathieu Dumont [facility] General Stated complaint: cough, congestion Mode of Arrival: Ambulatory Source of Information: Patient Limitations: No Limitations Time Seen by Provider: 01/15/24 08:27 Description of Symptoms (Recalled from Triage Doc. by RN): PATIENT C/O PRODUCTIVE COUGH WITH YELLOW/GREEN SPUTUM AND CONGESTION X 1 WEEK HEENT Symptoms (Recalled from RN notes): Yes Resp Symptoms (Recalled from RN notes): Yes Skin Symptoms (Recalled from RN notes): No MS Symptoms (Recalled from RN notes): No Functional Status (Recalled from RN notes): WNL Related Data Home Medications ?Medication ?Instructions ?Recorded ?Confirmed cyanocobalamin (vitamin B-12) 1,000 mcg SQ QMONTH 04/02/23 01/15/24 1,000 mcg/mL injection solution verapamil 180 mg tablet,extended 180 mg PO DAILY 04/02/23 01/15/24 release Previous Rx's ?Medication ?Instructions ?Recorded amoxicillin 875 mg-potassium 1 tab PO Q12H #20 tabs 01/15/24 clavulanate 125 mg tablet benzonatate 100 mg capsule 100 mg PO TIDP PRN Cough #30 caps 01/15/24 methylprednisolone 4 mg tablets in 4 mg PO DIRECTED 6 days #21 tabs 01/15/24 a dose pack promethazine-DM 6.25 mg-15 mg/5 mL 5 ml PO Q6H PRN Cough #240 mL 01/15/24 oral syrup Allergies Allergy/AdvReac Type Severity Reaction Status Date / Time Iodinated Contrast Media Allergy Severe S-DIFF. Verified 04/24/23 13:59 [Iodinated Contrast Media - BREATHING IV Dye] Worker's Comp Is this a Worker's Comp case?: No [facility] Disclaimer: The information contained in this section may have been updated after the patient was seen, as this information can be updated by other users. Medical History Hypertension Surgical History History of cholecystectomy History of discectomy Family History Other Cancer Diabetes Hypertension Social History Smoking Status: Never smoker alcohol intake: never substance use type: denies use current occupational status: employed Travel in the last 8 weeks: None ROS Obtained: Yes All systems reviewed & no additional complaints except as documented Constitutional Constitutional: Reports chills and Reports fever(s) Eyes Eyes: Denies eye discharge ENT Ears, Nose, Mouth, and Throat: Reports as per HPI Cardiovascular Cardiovascular: Denies chest pain Respiratory Respiratory: Denies chest congestion and Reports cough Gastrointestinal Gastrointestingal: Reports nausea; Denies abdominal pain, constipation, cramping, diarrhea or vomiting Musculoskeletal Musculoskeletal: Denies arthralgias Integumentary/Breasts Skin/Breast: Denies rash Neurologic Neurologic: Denies paresthesias Physical Exam General General appearance: alert and in no apparent distress Eye Eye exam: Present normal appearance, PERRL and EOMI ENT ENT exam: Present mucous membranes moist and normal external ear exam Expanded ENT Exam External ear exam: Present normal external inspection TM/Canal exam: Bilateral TM: erythema and bulging Nose exam: Absent sinus tenderness Nasal speculum exam: Bilateral: normal Mouth exam: Present normal external inspection; Absent drooling Teeth exam: Present normal inspection Throat exam: Present tonsillar erythema and tonsillomegaly Neck Neck exam: Present normal inspection, full ROM and trachea midline; Absent tenderness, lymphadenopathy or thyromegaly Chest Chest inspection: Present normal inspection and symmetric chest wall rise; Absent tenderness or rash Respiratory Respiratory exam: Present normal lung sounds bilaterally; Absent respiratory distress, wheezes, stridor or accessory muscle use Cardiovascular Cardiovascular exam: Present regular rate, normal rhythm and normal heart sounds Abdominal Exam Abdominal exam: Present soft; Absent distention, tenderness, guarding, rebound or rigidity Extremities Exam Extremities exam: Present normal inspection, full ROM and normal capillary refill; Absent tenderness or calf tenderness Back Exam Back exam: Present normal inspection and full ROM; Absent tenderness Neurological Exam Neurological exam: Present alert and oriented X3 Psychiatric Psychiatric exam: Present normal affect and normal mood Skin Skin exam: Present warm, dry, intact and normal color Lymphatic Lymphatic Findings: no adenopathy Medical Decision Making Medical Records Medical records reviewed: No I reviewed the patient's medical records. Screening: Per USPSTF and CDC recommendations, given the prevalence of disease in our region, it is our hospital?s policy to screen for HIV and viral Hepatitis for all patients aged 18 and over and those with ongoing risk factors. Ron Inquiry Pt receiving controlled substance: No Vital Signs: 01/15/24 08:10 Temperature 98.4 F Temperature Source Oral Pulse Rate [Left Brachial] 66 Respiratory Rate 18 Blood Pressure [Left Arm] 147/84 H Blood Pressure Mean [Left Arm] 105 Blood Pressure Source [Left Arm] Automatic Cuff Blood Pressure Position [Left Arm] Sitting 02 Sat by Pulse Oximetry 96 Oxygen Delivery Method Room Air Lab Data Lab results reviewed: Yes I reviewed the patient's lab results. Orders (Tests/Meds): ED MEDICATIONS Generic Name Dose Route Start Last Admin Trade Name Freq PRN Reason Stop Dose Admin Ceftriaxone Sodium 1 gm 01/15/24 08:25 Ceftriaxone 1gm Vial IM 01/15/24 08:26 ONCE ONE Dexamethasone Sodium Phosphate 8 mg 01/15/24 08:25 Dexamethasone 4mg/Ml 1ml Vial IM 01/15/24 08:26 ONCE ONE Lidocaine HCl 0 ml 01/15/24 08:25 Lidocaine 1% 5ml Pf Vial IM 01/15/24 08:26 ONCE ONE
[2024-01-15] MEDS: LIDOCAINE 1% 5ML PF VIAL IM (08:30)
[2024-01-15] MEDS: DEXAMETHASONE 4MG/ML 1ML VIAL 8 MG IM (08:30)
[2024-01-15] MEDS: cefTRIAXone 1GM VIAL 1 GM IM (08:30)
[2024-01-15 08:40] VITALS: BP 147/84; PULSE 66; RESP 18; TEMP 36.9; O2SAT 96
== END 2024-01-15 08:45 | disposition home or self-care (01) ==
PROVIDERS: Emergency Provider Nurse Practitioner Family; PCP Nurse Practitioner Family
DX: J20.9 Acute bronchitis, unspecified (principal); J01.80 Other acute sinusitis
CPT/HCPCS: 96372; 99213; G0381; J0696; J1100

== ENCOUNTER 2024-02-05 13:00 | Emergency (ER) | payer OTHER, SELFPAY ==
--- NOTE | 2024-02-05 13:07 | XR_ITS ---
PROCEDURE INFORMATION: Exam: XR Left Ribs with PA Chest Exam date and time: 02/05/2024 1:27 PM Age: 38 years old Clinical indication: Other: Left sided rib pain; Additional info: Cough/ felt pop in ribs TECHNIQUE: Imaging protocol: Radiologic exam of the left ribs with PA chest. Views: 3 views COMPARISON: No relevant prior studies available. FINDINGS: Lungs: The lungs are clear. Pleural spaces: No pneumothorax or pleural effusion. Heart/Mediastinum: Cardiomediastinal silhouette is unremarkable. Bones/joints: No acute osseous or soft tissue abnormality. IMPRESSION: 1. No acute cardiopulmonary abnormality. 2. No appreciable osseous fracture.
[2024-02-05 13:08] VITALS: BP 144/100; PULSE 102; RESP 20; TEMP 36.8; O2SAT 96; BMI 39.9
--- NOTE | 2024-02-05 13:13 | ED_ITS ---
Discharge Plan Disposition Patient Disposition: Home, Self-Care Condition: Good Prescriptions Prescriptions: New lidocaine 5 % adhesive patch,medicated 1 patch topical DAILY Qty: 15 0RF Rx Instructions: leave on most painful area for up to 12 hrs then remove for 12 hours doxycycline hyclate 100 mg capsule 100 mg PO BID Qty: 20 0RF prednisone 20 mg tablet 20 mg PO BID 5 Days Qty: 10 0RF No Action verapamil 180 mg tablet extended release 180 mg PO DAILY Referrals Follow up/Referrals: Keesha Cabrera APRN [Primary Care Provider] - See instructions Activity Restrictions/Add. Instructions Additional Instructions/Restrictions: Make sure to take deep breaths and clear secretions Over the counter Motrin may help with pain Follow up with your Family Doctor if no improvement or pain persists Straight to ER if any life threatening symptoms Vaporizer/humidifier may help with cough and congestion Use lidocaine patches as instructed on area to help with pain Clinical Impressions Clinical Impression: Rib pain on left side Instructions Patient Instructions: Lidocaine Transdermal Patch Print Language Print Language: Luxembourgish Discharge ED Provider: Rylee Biggs [facility] General Stated complaint: cough, pain in L side Mode of Arrival: Ambulatory Source of Information: Patient Time Seen by Provider: 02/05/24 13:14 Description of Symptoms (Recalled from Triage Doc. by RN): LL RIB PAIN, COUGH, CONGESTION, PRODUCTIVE COUGH HEENT Symptoms (Recalled from RN notes): No Resp Symptoms (Recalled from RN notes): Yes Skin Symptoms (Recalled from RN notes): No MS Symptoms (Recalled from RN notes): No Functional Status (Recalled from RN notes): WNL History of Present Illness Provider Complaint: Patient states that she was seen and treated a few weeks ago from Bronchitis States she has still had the cough and earlier she was coughing and felt a pop in her left lower rib area and now having pain when she coughs, moves or takes a deep breath Denies SOA Related Data Home Medications ?Medication ?Instructions ?Recorded ?Confirmed verapamil 180 mg tablet,extended 180 mg PO DAILY 04/02/23 02/05/24 release Previous Rx's ?Medication ?Instructions ?Recorded doxycycline hyclate 100 mg capsule 100 mg PO BID #20 caps 02/05/24 lidocaine 5 % topical patch 1 patch topical DAILY #15 ea 02/05/24 prednisone 20 mg tablet 20 mg PO BID 5 days #10 tabs 02/05/24 Allergies Allergy/AdvReac Type Severity Reaction Status Date / Time Iodinated Contrast Media Allergy Severe S-DIFF. Verified 04/24/23 13:59 (Iodinated Contrast Media - BREATHING IV Dye) Worker's Comp Is this a Worker's Comp case?: No [facility] Disclaimer: The information contained in this section may have been updated after the patient was seen, as this information can be updated by other users. Medical History Hypertension Surgical History History of cholecystectomy History of discectomy Family History Other Cancer Diabetes Hypertension Social History Smoking Status: Never smoker alcohol intake: never substance use type: denies use current occupational status: employed Travel in the last 8 weeks: None ROS Obtained: Yes All systems reviewed & no additional complaints except as documented and Yes Systems reviewed as appropriate & no additional complaints except as documented Constitutional Constitutional: Reports system reviewed and no additional complaints, except as documented and Reports as per HPI Eyes Eyes: Reports system reviewed and no additional complaints, except as documented and Reports as per HPI ENT Ears, Nose, Mouth, and Throat: Reports system reviewed and no additional complaints, except as documented and Reports as per HPI Cardiovascular Cardiovascular: Reports system reviewed and no additional complaints, except as documented, Reports as per HPI, Denies chest pain and Denies dyspnea Respiratory Respiratory: Reports system reviewed and no additional complaints, except as documented, Reports as per HPI, Denies shortness of breath, Reports chest congestion, Reports cough, Denies dyspnea, Denies hemoptysis, Reports pain on inspiration, Reports pain with cough, Reports pain with breathing, Denies stridor, Denies wheezing and Reports other Comments: was coughing earlier and felt a pop in left lower ribs, now having pain with cough or deep breath Allergic/Immunologic Allergic/Immunologic: Denies wheezing Physical Exam General General appearance: alert and in no apparent distress ENT ENT exam: Present mucous membranes moist Neck Neck exam: Present normal inspection Chest Chest inspection: Present normal inspection and symmetric chest wall rise Expanded Chest Exam Female Torso: 2 1. reports tenderness left lower ribs around side into back with deep breath and cough, reports felt a pop earlier when she was coughing and pain started Respiratory Respiratory exam: Present normal lung sounds bilaterally; Absent respiratory distress or wheezes Cardiovascular Cardiovascular exam: Present regular rate, normal rhythm and normal heart sounds Neurological Exam Neurological exam: Present alert, oriented X3 and normal gait Medical Decision Making Medical Records Screening: Per USPSTF and CDC recommendations, given the prevalence of disease in our region, it is our hospital?s policy to screen for HIV and viral Hepatitis for all patients aged 18 and over and those with ongoing risk factors. Ron Inquiry Pt receiving controlled substance: No Ron was queried for this patient: No Vital Signs: 02/05/24 13:08 Temperature 98.2 F Temperature Source Oral Pulse Rate [Left Radial] 102 H Respiratory Rate 20 Blood Pressure [Left Arm] 144/100 H Blood Pressure Mean [Left Arm] 114 02 Sat by Pulse Oximetry 96 Orders (Tests/Meds): ORDERS Category Date Time Status XR ribs LT min 3V w CXR1V Stat Exams 02/05/24 13:07 Ordered Radiology Data #1: Image(s): Chest (left ribs with chest) Image Reviewed: Yes I have reviewed radiologist's interpretation FINDINGS: Lungs: The lungs are clear. Pleural spaces: No pneumothorax or pleural effusion. Heart/Mediastinum: Cardiomediastinal silhouette is unremarkable. Bones/joints: No acute osseous or soft tissue abnormality. IMPRESSION: 1. No acute cardiopulmonary abnormality. 2. No appreciable osseous fracture.
[2024-02-05] MEDS: KETOROLAC 60MG/2ML VIAL 60 MG IM (14:51)
[2024-02-05 14:55] VITALS: BP 144/100; PULSE 102; RESP 20; TEMP 36.8
== END 2024-02-05 14:55 | disposition home or self-care (01) ==
PROVIDERS: Emergency Provider Nurse Practitioner; PCP Nurse Practitioner Family
DX: R07.82 Intercostal pain (principal)
CPT/HCPCS: 71101; 96372; 99213; G0381; J1885

== ENCOUNTER 2024-07-29 08:38 | Outpatient (CLI) | payer OTHER, SELFPAY ==
[2024-07-29 09:12] LABS: Basophils % 0.5 % (0.1-2.0); Eosinophils # 0.1 Kmm3 (0.0-0.4); Hematocrit 40.7 % (37.0-47.0); Immature Granulocytes # 0.01 10^3uL; Immature Granulocytes % 0.2 %; Lymphocytes # 2.2 K/mm3 (0.7-4.5); Lymphocytes % 36.2 % (10-50); Mean Corpuscular HGB Conc 34.4 g/dL (31.8-35.4); Mean Corpuscular Hemoglobin 29.9 pg (27.0-31.2); Mean Corpuscular Volume 86.8 fl (81-99); Monocytes # 0.4 K/mm3 (0.1-1.0); Monocytes % 5.9 % (1.7-9.3); Neutrophils # 3.4 K/mm3 (1.8-7.8); Neutrophils % 55.2 % (37.0-80.0); Nucleated Red Blood Cells # 0 10^3/uL; Nucleated Red Blood Cells % 0 %; Platelet Count 310 K/mm3 (142-424); Red Blood Count 4.69 M/mm3 (4.20-5.40); Red Cell Distribution Width-SD 37.9 fL; White Blood Count 6.1 K/mm3 (4.8-10.8)
[2024-07-29 09:53] LABS: Alanine Aminotransferase 18 U/L (12-78); Albumin Level 4.2 g/dl (3.5-5.0); Albumin/Globulin Ratio 1.6 (1.1-1.8); Alkaline Phosphatase 83 U/L (38-126); Anion Gap 7.1 mEq/L (5-15); Aspartate Amino Transferase 22 U/L (14-36); Bilirubin,Total 0.6 mg/dl (0.2-1.3); Blood Urea Nitrogen 10 mg/dl (7-17); Calcium 9.3 mg/dl (8.4-10.2); Carbon Dioxide 25 mmol/L (22.0-30.0); Chloride 108 mmol/L (98-107); Chol/HDL Ratio 3.7 (1-3.5); Cholesterol 189 mg/dl (140-200); Estimated Glomerular Filt Rate 111 ml/min (>60); GFR (African American) 134 ML/MIN (>60); Globulin 2.7 g/dL (1.3-3.2); Glucose 84 mg/dl (74-100); HDL Cholesterol 51 mg/dl (40-60); Potassium 4.1 mmoL/L (3.5-5.1); Sodium 136 mmol/L (136-145); Total Protein,Serum 6.9 g/dl (6.3-8.2); Triglycerides 137 mg/dl (30-150); VLDL Cholesterol 27 mg/dL (0-40)
[2024-07-29 10:04] LABS: Direct LDL Cholesterol 107.69 mg/dL (100-129)
[2024-07-29 10:09] LABS: 25-OH Vitamin D, Total 26.6 ng/mL (30-100)
[2024-07-29 10:43] LABS: Vitamin B12 358 pg/mL (239-931)
== END 2024-07-29 23:59 | disposition home or self-care (01) ==
LOC: LAB 08:39
PROVIDERS: PCP Nurse Practitioner Family; Visit Provider Nurse Practitioner Family
DX: Z00.00 Encounter for general adult medical examination without abnormal findings (principal); R53.83 Other fatigue
CPT/HCPCS: 36415; 80053; 80061; 82306; 82607; 84443; 85025